=== PATIENT | female | born 1945 | race Caucasian/White ===

== ENCOUNTER 2016-12-03 20:55 | Inpatient (IN) | payer OTHER, MEDICARE ==
[~2016-12-03] VITALS: Ht 157.5 cm; Wt 64.7 kg
[~2016-12-03 20:55] MED LIST: ADVAIR HFA120 INHALA IH; ASPIR 8181 M1 PO; CELEXA20 MG PO; DEPAKOTE500 MG PO; DUONEB 2.5-0.5 M3 ML AEROSOL; FAMOTIDINE20 MG PO; LASIX20 MG PO; LEVAQUIN500 MG PO; LOSARTAN POTASS50 MG PO; MYRBETRIQ25 MG PO; ONDANSETRON HCL8 MG PO; PRAVASTATIN SOD40 MG PO; PREDNISONE10 MG PO; PREDNISONE20 MG PO; SYNTHROID50 MCG PO
[2016-12-03 22:31] LABS: MCH 32.4 PG (29.0-34.0); MCHC 33.8 G/DL (30.0-36.0); MCV 95.9 FL (83-99); PLATELET COUNT 270 K/uL (156-360); RBC DIS.WIDTH-CV 13.3 % (11.8-14.6); RBC DIS.WIDTH-SD 47.5 % (39-53); RED BLOOD COUNT 4.17 M/uL (3.80-5.20); WHITE BLOOD COUNT 16.1 K/uL (4.1-10.2)
[2016-12-03 22:43] LABS: CHLORIDE 97 mEq/L (99-109); POTASSIUM 3.4 mEq/L (3.7-5.4); SODIUM 136 mEq/L (136-147)
[2016-12-03 22:44] LABS: GLUCOSE 121 mg/dL (70-99)
[2016-12-03 22:46] LABS: ANION GAP 18 MEQ/L (2-14)
[2016-12-03 22:48] LABS: GFR ESTIMATE (CALCULATED) 22 mL/min/
[2016-12-03 22:49] LABS: UREA NITROGEN (BUN) 58 mg/dL (9-23)
[2016-12-03 22:50] LABS: ADD MIUA? YES; BILIRUBIN NEGATIVE; BLOOD MODERATE; COLOR AMBER ((YELLOW)); GLUCOSE (STRIP) NEGATIVE; KETONES 5; LEUKOCYTES MODERATE; NITRITE NEGATIVE; PROTEIN (STRIP) NEGATIVE; SPECIFIC GRAVITY 1.012 (1.000-1.030)
[2016-12-03 22:52] LABS: TROP-I INTERPRETATION NEGATIVE; TROPONIN-I 0.02 ng/mL (0.0-0.30)
[2016-12-03 23:03] LABS: TOTAL CK 4882 IU/L (1-294)
[2016-12-03 23:05] LABS: CREATINE KINASE 4882 IU/L (1-294)
[2016-12-03 23:17] LABS: BACTERIA 1+ /HPF; EPITHELIAL CELLS RARE /HPF; MUCUS NONE SEEN /LPF; RED BLOOD CELLS 0-5 /HPF (0-5); UCUL ADDED? NO; WHITE BLOOD CELLS CLUMP FEW /HPF (0-5)
[2016-12-03] MEDS ORDERED: CLEOCIN300 MG PO (23:22)
[2016-12-03] MEDS ORDERED: DUONEB 2.5-0.5 M3 ML AEROSOL (23:42)
[2016-12-03] MEDS ORDERED: LOSARTAN POTAS100 MG PO (23:43)
[2016-12-03] MEDS ORDERED: MYRBETRIQ50 MG PO (23:48)
[2016-12-03] MEDS ORDERED: THEO-24200 MG PO (23:49)
[2016-12-03] MEDS ORDERED: MOBIC15 MG PO (23:50)
[2016-12-03] MEDS ORDERED: CLONIDINE HCL0.1 MG PO (23:51)
[2016-12-03] MEDS ORDERED: AMBIEN10 MG PO (23:52)
[2016-12-04 04:36] VITALS: BP 145/75
[2016-12-04 07:55] VITALS: BP 158/84
[2016-12-04 10:57] LABS: ANION GAP 12 MEQ/L (2-14); CHLORIDE 108 MEQ/L (99-109); GLUCOSE 95 mg/dL (70-99); POTASSIUM 3.6 MEQ/L (3.7-5.4); SAMPLE HEMOLYSIS CHECK 0; SAMPLE ICTERIC CHECK 0; SAMPLE LIPEMIA CHECK 0; SODIUM 142 MEQ/L (136-147); UREA NITROGEN (BUN) 42 mg/dL (9-23)
[2016-12-04 11:02] LABS: GFR ESTIMATE (CALCULATED) 39 mL/min/
[2016-12-04 11:15] VITALS: BP 136/73
[2016-12-04 15:25] VITALS: BP 131/70
[2016-12-04 19:53] VITALS: BP 118/69
[2016-12-04 23:25] VITALS: BP 120/76
[2016-12-05 04:10] VITALS: BP 160/80
[2016-12-05 06:41] LABS: BASOPHIL COUNT 0.1 K/uL (0-0.1); EOSINOPHIL (%) 0.6 % (0-5); EOSINOPHIL COUNT 0.1 K/uL (0-0.3); IMMATURE GRANULOCYTE (%) 4.5 % (0.0-0.7); IMMATURE GRANULOCYTE COUNT 0.4 K/uL; INSTRUMENT ABS NEUTROPHIL CT 7.1 K/uL; LYMPHOCYTE COUNT 1.6 K/uL (1.0-2.8); MCH 32.3 PG (29.0-34.0); MCHC 32.4 G/DL (30.0-36.0); MCV 99.7 FL (83-99); MONOCYTE (%) 5.1 % (3-12); MONOCYTE COUNT 0.5 K/uL (0-0.8); NEUTROPHIL (%) 72.6 % (45-76); NEUTROPHIL COUNT 7.1 K/uL (1.8-6.4); RBC DIS.WIDTH-CV 13.8 % (11.8-14.6); RBC DIS.WIDTH-SD 50.6 % (39-53); RED BLOOD COUNT 3.41 M/uL (3.80-5.20); WHITE BLOOD COUNT 9.8 K/uL (4.1-10.2)
[2016-12-05 07:19] LABS: MEAN PLAT.VOLUME 9.6 uM^3 (9.5-12.4); PLAT.SUFFICIENCY ADEQUATE
[2016-12-05 07:19] LABS: ANION GAP 8 MEQ/L (2-14); CHLORIDE 109 MEQ/L (99-109); GFR ESTIMATE (CALCULATED) 52 mL/min/; GLUCOSE 73 mg/dL (70-99); MAGNESIUM 1.7 mg/dl (1.3-2.7); POTASSIUM 3.4 MEQ/L (3.7-5.4); SAMPLE HEMOLYSIS CHECK 0; SAMPLE ICTERIC CHECK 0; SAMPLE LIPEMIA CHECK 0; SODIUM 141 MEQ/L (136-147); UREA NITROGEN (BUN) 24 mg/dL (9-23)
[2016-12-05 07:23] LABS: CREATINE KINASE 1085 IU/L (1-294)
[2016-12-05 07:25] LABS: PLATELET COUNT 185 K/uL (156-360)
[2016-12-05 07:45] VITALS: BP 176/83
[2016-12-05 11:40] VITALS: BP 132/80
[2016-12-05 15:59] VITALS: BP 146/82
[2016-12-05 20:16] VITALS: BP 175/84
[2016-12-05 23:14] VITALS: BP 160/81
[2016-12-06 04:31] VITALS: BP 169/92
[2016-12-06 06:22] LABS: ANION GAP 8 MEQ/L (2-14); CHLORIDE 106 MEQ/L (99-109); CREATINE KINASE 352 IU/L (1-294); GFR ESTIMATE (CALCULATED) > 59 mL/min/; GLUCOSE 79 mg/dL (70-99); MAGNESIUM 1.5 mg/dl (1.3-2.7); POTASSIUM 3.3 MEQ/L (3.7-5.4); SAMPLE HEMOLYSIS CHECK 0; SAMPLE ICTERIC CHECK 0; SAMPLE LIPEMIA CHECK 0; SODIUM 138 MEQ/L (136-147); UREA NITROGEN (BUN) 14 mg/dL (9-23)
[2016-12-06 08:21] VITALS: BP 170/87
[2016-12-06 16:27] VITALS: BP 178/84
[2016-12-07 00:03] VITALS: BP 132/87
[2016-12-07 07:10] LABS: ANION GAP 8 MEQ/L (2-14); CHLORIDE 106 MEQ/L (99-109); GFR ESTIMATE (CALCULATED) > 59 mL/min/; GLUCOSE 76 mg/dL (70-99); POTASSIUM 3.6 MEQ/L (3.7-5.4); SAMPLE HEMOLYSIS CHECK 0; SAMPLE ICTERIC CHECK 0; SAMPLE LIPEMIA CHECK 0; SODIUM 138 MEQ/L (136-147); UREA NITROGEN (BUN) 12 mg/dL (9-23)
[2016-12-07 07:30] VITALS: BP 174/95
[2016-12-07] MEDS ORDERED: LEVAQUIN500 MG PO (13:34)
[2016-12-07] MEDS ORDERED: CYANOCOBALAM1000 MCG PO (13:36)
[2016-12-07] MEDS ORDERED: LEVOFLOXAC500 MG/101 IV (16:48)
[2016-12-07] MEDS ORDERED: VITAMIN D5000 UNI1 PO (17:06)
[2016-12-07] MEDS ORDERED: HEPARIN SO5000 UNIT3 SC (17:08)
[2016-12-07] MEDS ORDERED: PROTONIX40 MG PO (17:09)
[2016-12-07] MEDS ORDERED: ULTRAM50 MG PO (17:48)
[2016-12-07] MEDS ORDERED: MOBIC15 MG PO (17:50)
== END 2016-12-07 14:38 | DRG 871 ==
LOC: EME → EDBD 20:55 → 2EAST 12-04 00:47 → EDOF 12-04 00:47 → 2EAST 12-04 02:23
PROVIDERS: Emergency Medicine; Hospitalist; Internal Medicine
DX: A41.9 Sepsis, unspecified organism (principal); J18.9 Pneumonia, unspecified organism; G93.41 Metabolic encephalopathy; N17.9 Acute kidney failure, unspecified; N39.0 Urinary tract infection, site not specified; J44.0 Chronic obstructive pulmonary disease with (acute) lower respiratory infection; M62.82 Rhabdomyolysis; M87.852 Other osteonecrosis, left femur; F05 Delirium due to known physiological condition; E03.9 Hypothyroidism, unspecified; E78.5 Hyperlipidemia, unspecified; E86.0 Dehydration; I10 Essential (primary) hypertension; I73.9 Peripheral vascular disease, unspecified; M19.90 Unspecified osteoarthritis, unspecified site; E66.9 Obesity, unspecified; B96.20 Unspecified Escherichia coli [E. coli] as the cause of diseases classified elsewhere; W19.XXXA Unspecified fall, initial encounter; S70.12XA Contusion of left thigh, initial encounter; M48.54XD Collapsed vertebra, not elsewhere classified, thoracic region, subsequent encounter for fracture with routine healing; F32.9 Major depressive disorder, single episode, unspecified; G43.909 Migraine, unspecified, not intractable, without status migrainosus; Z87.891 Personal history of nicotine dependence; Z68.26 Body mass index [BMI] 26.0-26.9, adult; Z86.73 Personal history of transient ischemic attack (TIA), and cerebral infarction without residual deficits; Z79.52 Long term (current) use of systemic steroids; Y92.9 Unspecified place or not applicable; Z82.49 Family history of ischemic heart disease and other diseases of the circulatory system; Z79.899 Other long term (current) drug therapy
CPT/HCPCS: 70450; 71020; 73552; 74176; 76770; 80048; 81003; 82306; 82550; 82553; 82607; 83605; 83735; 84443; 84484; 85025; 85027; 87040; 87077; 87086; 87186; 92610 GN; 93005; 97530 GO; 97530 GP; 99202; 99281; 99285; J1644; J1956; J2543; J7030

== ENCOUNTER 2016-12-07 14:08 | Inpatient (IN) | payer OTHER, MEDICARE ==
[~2016-12-07] VITALS: Ht 152.4 cm; Wt 68.7 kg
[~2016-12-07 14:08] MED LIST changes: +AMBIEN10 MG PO; +CLEOCIN300 MG PO; +CLONIDINE HCL0.1 MG PO; +CYANOCOBALAM1000 MCG PO; +LOSARTAN POTAS100 MG PO; +MOBIC15 MG PO; +MYRBETRIQ50 MG PO; +THEO-24200 MG PO
[2016-12-07 15:00] VITALS: BP 170/93
[2016-12-07] MEDS ORDERED: LEVOFLOXAC500 MG/101 IV (16:48)
[2016-12-07] MEDS ORDERED: VITAMIN D5000 UNI1 PO (17:06)
[2016-12-07] MEDS ORDERED: HEPARIN SO5000 UNIT3 SC (17:08)
[2016-12-07] MEDS ORDERED: PROTONIX40 MG PO (17:09)
[2016-12-07] MEDS ORDERED: ULTRAM50 MG PO (17:48)
[2016-12-07] MEDS ORDERED: MOBIC15 MG PO (17:50)
[2016-12-08 06:06] VITALS: BP 141/80
[2016-12-08 15:11] VITALS: BP 140/72
[2016-12-09 04:38] VITALS: BP 131/74
[2016-12-09 14:59] VITALS: BP 159/84
[2016-12-10 05:10] VITALS: BP 134/71
[2016-12-10 07:12] LABS: HEMATOCRIT 31.7 % (36.0-46.0); MCH 31.5 PG (29.0-34.0); MCHC 31.9 G/DL (30.0-36.0); MCV 98.8 FL (83-99); MEAN PLAT.VOLUME 9.3 uM^3 (9.5-12.4); PLATELET COUNT 166 K/uL (156-360); RBC DIS.WIDTH-CV 13.9 % (11.8-14.6); RBC DIS.WIDTH-SD 50.3 % (39-53); RED BLOOD COUNT 3.21 M/uL (3.80-5.20); WHITE BLOOD COUNT 11.5 K/uL (4.1-10.2)
[2016-12-10 07:40] LABS: ALKALINE PHOSPHATASE 64 IU/L (3-129); ANION GAP 8 MEQ/L (2-14); CHLORIDE 103 MEQ/L (99-109); GFR ESTIMATE (CALCULATED) > 59 mL/min/; GLUCOSE 80 mg/dL (70-99); POTASSIUM 3.7 MEQ/L (3.7-5.4); SAMPLE HEMOLYSIS CHECK 0; SAMPLE ICTERIC CHECK 0; SAMPLE LIPEMIA CHECK 0; SODIUM 138 MEQ/L (136-147); TOTAL BILIRUBIN 0.5 MG/DL (0.0-1.0); UREA NITROGEN (BUN) 9 mg/dL (9-23)
[2016-12-10 07:48] LABS: ABS NEUTROPHIL COUNT 7.6; ANISOCYTOSIS 1+; EOSINOPHIL ABS CT 0.1; EOSINOPHILS 0.9 % (0-5.0); INSTRUMENT ABS NEUTROPHIL CT 5.9 K/uL; MACROCYTES 1+; PLAT.SUFFICIENCY ADEQUATE; SEG.NEUTROPHILS 65.8 % (46.0-76.0)
[2016-12-10 15:35] VITALS: BP 141/73
[2016-12-11 05:03] VITALS: BP 138/63
[2016-12-11 15:44] VITALS: BP 114/69
[2016-12-12 05:33] VITALS: BP 147/79
[2016-12-12 06:06] LABS: MCH 33.1 PG (29.0-34.0); MCHC 33.6 G/DL (30.0-36.0); MCV 98.6 FL (83-99); MEAN PLAT.VOLUME 9.2 uM^3 (9.5-12.4); PLATELET COUNT 162 K/uL (156-360); RBC DIS.WIDTH-SD 50.9 % (39-53); RED BLOOD COUNT 2.84 M/uL (3.80-5.20); WHITE BLOOD COUNT 13.6 K/uL (4.1-10.2)
[2016-12-12 07:04] LABS: ALKALINE PHOSPHATASE 65 IU/L (3-129); ANION GAP 8 MEQ/L (2-14); CHLORIDE 101 MEQ/L (99-109); GFR ESTIMATE (CALCULATED) > 59 mL/min/; GLUCOSE 82 mg/dL (70-99); POTASSIUM 3.8 MEQ/L (3.7-5.4); SAMPLE HEMOLYSIS CHECK 0; SAMPLE ICTERIC CHECK 0; SAMPLE LIPEMIA CHECK 0; SODIUM 137 MEQ/L (136-147); TOTAL BILIRUBIN 0.4 MG/DL (0.0-1.0); UREA NITROGEN (BUN) 11 mg/dL (9-23)
[2016-12-12 07:06] LABS: CREATINE KINASE 19 IU/L (1-294)
[2016-12-12 15:18] VITALS: BP 140/71
[2016-12-13 04:58] VITALS: BP 169/82
[2016-12-13 06:45] LABS: BASOPHIL COUNT 0.1 K/uL (0-0.1); EOSINOPHIL (%) 0.7 % (0-5); EOSINOPHIL COUNT 0.1 K/uL (0-0.3); HEMATOCRIT 30.3 % (36.0-46.0); IMMATURE GRANULOCYTE (%) 3.9 % (0.0-0.7); IMMATURE GRANULOCYTE COUNT 0.6 K/uL; INSTRUMENT ABS NEUTROPHIL CT 11.1 K/uL; LYMPHOCYTE COUNT 1.8 K/uL (1.0-2.8); MCH 32.4 PG (29.0-34.0); MCV 98.1 FL (83-99); MEAN PLAT.VOLUME 9.3 uM^3 (9.5-12.4); MONOCYTE (%) 8.9 % (3-12); MONOCYTE COUNT 1.3 K/uL (0-0.8); NEUTROPHIL (%) 73.9 % (45-76); NEUTROPHIL COUNT 11.1 K/uL (1.8-6.4); PLATELET COUNT 203 K/uL (156-360); RBC DIS.WIDTH-CV 13.9 % (11.8-14.6); RBC DIS.WIDTH-SD 50.4 % (39-53); RED BLOOD COUNT 3.09 M/uL (3.80-5.20)
[2016-12-13 15:00] VITALS: BP 153/80
[2016-12-14 05:53] VITALS: BP 133/75
[2016-12-14 15:15] VITALS: BP 157/79
[2016-12-15 04:20] VITALS: BP 165/72
[2016-12-15 15:12] VITALS: BP 125/63
[2016-12-16 03:36] VITALS: BP 129/71
[2016-12-16 16:02] VITALS: BP 123/78
[2016-12-17 04:18] VITALS: BP 142/61
[2016-12-17 15:23] VITALS: BP 125/71
[2016-12-18 05:31] VITALS: BP 138/75
[2016-12-18 07:40] LABS: ANION GAP 6 MEQ/L (2-14); CHLORIDE 98 MEQ/L (99-109); GFR ESTIMATE (CALCULATED) 58 mL/min/; GLUCOSE 70 mg/dL (70-99); SAMPLE HEMOLYSIS CHECK 0; SAMPLE ICTERIC CHECK 0; SAMPLE LIPEMIA CHECK 0; SODIUM 131 MEQ/L (136-147); TOTAL BILIRUBIN 0.4 MG/DL (0.0-1.0); UREA NITROGEN (BUN) 11 mg/dL (9-23)
[2016-12-18 07:41] LABS: ALKALINE PHOSPHATASE 97 IU/L (3-129)
[2016-12-18 07:44] LABS: HEMATOCRIT 29.8 % (36.0-46.0); MCH 31.6 PG (29.0-34.0); MCHC 31.9 G/DL (30.0-36.0); MEAN PLAT.VOLUME 8.8 uM^3 (9.5-12.4); PLATELET COUNT 281 K/uL (156-360); RBC DIS.WIDTH-CV 14.1 % (11.8-14.6); RBC DIS.WIDTH-SD 50.8 % (39-53); RED BLOOD COUNT 3.01 M/uL (3.80-5.20); WHITE BLOOD COUNT 9.5 K/uL (4.1-10.2)
[2016-12-18 14:46] VITALS: BP 116/70
[2016-12-19 04:11] VITALS: BP 132/61
[2016-12-19 15:02] VITALS: BP 119/75
[2016-12-20 05:36] VITALS: BP 128/74
[2016-12-20 15:48] VITALS: BP 133/71
[2016-12-20 18:33] LABS: ADD MIUA? YES; BILIRUBIN NEGATIVE; BLOOD SMALL; COLOR YELLOW ((YELLOW)); GLUCOSE (STRIP) NEGATIVE; KETONES NEGATIVE; LEUKOCYTES LARGE; NITRITE NEGATIVE; PROTEIN (STRIP) NEGATIVE; SPECIFIC GRAVITY 1.008 (1.000-1.030); UROBILINOGEN 0.2 MG/DL (0.2-1.0)
[2016-12-20 19:47] LABS: RED BLOOD CELLS 0-5 /HPF (0-5)
[2016-12-20 19:48] LABS: BACTERIA 2+ /HPF; EPITHELIAL CELLS 1+ /HPF; WHITE BLOOD CELLS 30-40 /HPF (0-5); WHITE BLOOD CELLS CLUMP FEW /HPF (0-5)
[2016-12-20 19:49] LABS: HYALINE CASTS RARE /LPF; MUCUS TRACE /LPF
[2016-12-21 05:08] VITALS: BP 131/67
[2016-12-21 15:40] VITALS: BP 120/70
[2016-12-22 05:08] VITALS: BP 161/81
[2016-12-22 08:25] VITALS: BP 116/75
[2016-12-22 15:34] VITALS: BP 147/81
[2016-12-22] MEDS ORDERED: AMLODIPINE BES2.5 MG PO (18:17)
[2016-12-22] MEDS ORDERED: HYDROCODON-ACE1 EAC7 PO (18:19)
[2016-12-22 18:26] LABS: HEMATOCRIT 28.8 % (36.0-46.0); MCH 32.2 PG (29.0-34.0); MCV 97.6 FL (83-99); MEAN PLAT.VOLUME 8.6 uM^3 (9.5-12.4); PLATELET COUNT 276 K/uL (156-360); RBC DIS.WIDTH-CV 14.1 % (11.8-14.6); RBC DIS.WIDTH-SD 50.4 % (39-53); RED BLOOD COUNT 2.95 M/uL (3.80-5.20); WHITE BLOOD COUNT 8.5 K/uL (4.1-10.2)
[2016-12-22 18:46] LABS: ANION GAP 8 MEQ/L (2-14); CHLORIDE 89 MEQ/L (99-109); GFR ESTIMATE (CALCULATED) 58 mL/min/; GLUCOSE 120 mg/dL (70-99); POTASSIUM 4.4 MEQ/L (3.7-5.4); SAMPLE HEMOLYSIS CHECK 0; SAMPLE ICTERIC CHECK 0; SAMPLE LIPEMIA CHECK 0; SODIUM 120 MEQ/L (136-147); UREA NITROGEN (BUN) 13 mg/dL (9-23)
[2016-12-23 05:28] VITALS: BP 155/72
[2016-12-23 10:38] LABS: ANION GAP 10 MEQ/L (2-14); CHLORIDE 89 MEQ/L (99-109); GFR ESTIMATE (CALCULATED) 58 mL/min/; GLUCOSE 121 mg/dL (70-99); POTASSIUM 4.6 MEQ/L (3.7-5.4); SAMPLE HEMOLYSIS CHECK 0; SAMPLE ICTERIC CHECK 0; SAMPLE LIPEMIA CHECK 0; SODIUM 122 MEQ/L (136-147); UREA NITROGEN (BUN) 12 mg/dL (9-23)
[2016-12-23 16:36] VITALS: BP 115/68
[2016-12-23 16:44] LABS: ANION GAP 8 MEQ/L (2-14); CHLORIDE 88 MEQ/L (99-109); GFR ESTIMATE (CALCULATED) > 59 mL/min/; GLUCOSE 97 mg/dL (70-99); POTASSIUM 4.8 MEQ/L (3.7-5.4); SAMPLE HEMOLYSIS CHECK 0; SAMPLE ICTERIC CHECK 0; SAMPLE LIPEMIA CHECK 0; SODIUM 119 MEQ/L (136-147); UREA NITROGEN (BUN) 13 mg/dL (9-23)
[2016-12-23 20:29] LABS: ANION GAP 8 MEQ/L (2-14); CHLORIDE 90 MEQ/L (99-109); GFR ESTIMATE (CALCULATED) > 59 mL/min/; GLUCOSE 106 mg/dL (70-99); POTASSIUM 4.8 MEQ/L (3.7-5.4); SAMPLE HEMOLYSIS CHECK 0; SAMPLE ICTERIC CHECK 0; SAMPLE LIPEMIA CHECK 0; SODIUM 121 MEQ/L (136-147); UREA NITROGEN (BUN) 13 mg/dL (9-23)
[2016-12-24 04:51] VITALS: BP 149/69
[2016-12-24 09:20] LABS: ANION GAP 8 MEQ/L (2-14); CHLORIDE 93 MEQ/L (99-109); GFR ESTIMATE (CALCULATED) 58 mL/min/; GLUCOSE 72 mg/dL (70-99); POTASSIUM 5.1 MEQ/L (3.7-5.4); SAMPLE HEMOLYSIS CHECK 0; SAMPLE ICTERIC CHECK 0; SAMPLE LIPEMIA CHECK 0; SODIUM 125 MEQ/L (136-147); UREA NITROGEN (BUN) 13 mg/dL (9-23)
[2016-12-24 10:39] LABS: HPCA INDEX 0.06
[2016-12-24 15:41] VITALS: BP 98/58
[2016-12-24 18:07] VITALS: BP 110/58
[2016-12-25 04:34] VITALS: BP 113/64
[2016-12-25 07:04] LABS: ANION GAP 7 MEQ/L (2-14); CHLORIDE 98 MEQ/L (99-109); GFR ESTIMATE (CALCULATED) > 59 mL/min/; GLUCOSE 79 mg/dL (70-99); POTASSIUM 4.9 MEQ/L (3.7-5.4); SAMPLE HEMOLYSIS CHECK 0; SAMPLE ICTERIC CHECK 0; SAMPLE LIPEMIA CHECK 0; SODIUM 129 MEQ/L (136-147); UREA NITROGEN (BUN) 12 mg/dL (9-23)
[2016-12-25] MEDS ORDERED: TYLENOL REGULA325 MG PO (11:51)
[2016-12-25] MEDS ORDERED: SENNA PLUS TAB1 EACH PO (11:52)
[2016-12-25] MEDS ORDERED: POLYETHYLENE GL17 GM PO (11:52)
[2016-12-25] MEDS ORDERED: SODIUM CHLORIDE1 G1 PO (11:52)
== END 2016-12-25 15:02 | DRG 70 ==
LOC: 3WEST 14:08
PROVIDERS: Internal Medicine Nephrology; Physical Medicine & Rehabilitation Pain Medicine; Psychiatry & Neurology Neurology
PROC: F07M0ZZ Range of Motion and Joint Mobility Treatment of Musculoskeletal System - Whole Body (ICD-10-PCS; principal; 2016-12-07)
DX: G93.40 Encephalopathy, unspecified (principal); M62.82 Rhabdomyolysis; N17.9 Acute kidney failure, unspecified; J44.0 Chronic obstructive pulmonary disease with (acute) lower respiratory infection; J44.9 Chronic obstructive pulmonary disease, unspecified; I10 Essential (primary) hypertension; E78.5 Hyperlipidemia, unspecified; E03.9 Hypothyroidism, unspecified; Z87.891 Personal history of nicotine dependence; M87.9 Osteonecrosis, unspecified; N39.41 Urge incontinence; N39.0 Urinary tract infection, site not specified; D64.9 Anemia, unspecified; B96.20 Unspecified Escherichia coli [E. coli] as the cause of diseases classified elsewhere; E22.2 Syndrome of inappropriate secretion of antidiuretic hormone; Z87.01 Personal history of pneumonia (recurrent); A41.9 Sepsis, unspecified organism; J18.9 Pneumonia, unspecified organism
CPT/HCPCS: 71010; 80048; 80048 91; 80053; 81003; 82533 91; 82550; 83935; 84100; 84300; 84443; 84550; 85025; 85027; 86803; 87040; 87086; 92523 GN; 92610 GN; 97110 GO; 97530 GP; 97532 GN; J1644; J1956; J7030

== ENCOUNTER → 2017-01-14 | Outpatient (CLI) | payer OTHER, MEDICARE ==
[~2017-01-14] MED LIST changes: +AMLODIPINE BES2.5 MG PO; +HEPARIN SO5000 UNIT3 SC; +HYDROCODON-ACE1 EAC7 PO; +LEVOFLOXAC500 MG/101 IV; +POLYETHYLENE GL17 GM PO; +PROTONIX40 MG PO; +SENNA PLUS TAB1 EACH PO; +SODIUM CHLORIDE1 G1 PO; +TYLENOL REGULA325 MG PO; +ULTRAM50 MG PO; +VITAMIN D5000 UNI1 PO
== END ==
LOC: EEG 08:52
DX: G40.89 Other seizures (principal)
CPT/HCPCS: 95819

== ENCOUNTER 2017-02-03 19:49 | Emergency (ER) | payer OTHER ==
[~2017-02-03] VITALS: Ht 172.7 cm; Wt 65.4 kg
[2017-02-03 22:53] LABS: HEMATOCRIT 34.2 % (36.0-46.0); MCH 31.5 PG (29.0-34.0); MCHC 32.2 G/DL (30.0-36.0); MEAN PLAT.VOLUME 8.7 uM^3 (9.5-12.4); PLATELET COUNT 257 K/uL (156-360); RBC DIS.WIDTH-CV 15.9 % (11.8-14.6); RBC DIS.WIDTH-SD 57.1 % (39-53); RED BLOOD COUNT 3.49 M/uL (3.80-5.20); WHITE BLOOD COUNT 7.5 K/uL (4.1-10.2)
[2017-02-03 22:59] LABS: PROTHROMBIN TIME 11.5 SEC (10.2-12.9)
[2017-02-03 23:06] LABS: CHLORIDE 109 mEq/L (99-109); POTASSIUM 3.8 mEq/L (3.7-5.4); SODIUM 141 mEq/L (136-147)
[2017-02-03 23:08] LABS: GLUCOSE 74 mg/dL (70-99)
[2017-02-03 23:09] LABS: ANION GAP 10 MEQ/L (2-14)
[2017-02-03 23:12] LABS: GFR ESTIMATE (CALCULATED) > 59 mL/min/
[2017-02-03 23:13] LABS: UREA NITROGEN (BUN) 12 mg/dL (9-23)
[2017-02-03 23:17] LABS: TROP-I INTERPRETATION NEGATIVE; TROPONIN-I < 0.01 ng/mL (0.0-0.30)
[2017-02-04] MEDS ORDERED: FLEXERIL10 MG PO (00:37)
[2017-02-04] MEDS ORDERED: NAPROSYN500 MG PO (00:37)
[2017-02-04 01:21] VITALS: BP 165/84
== END 2017-02-04 02:02 | disposition home or self-care (01) ==
LOC: EME 19:49
PROVIDERS: Emergency Medicine
DX: R60.0 Localized edema (principal); M54.5 Low back pain; M79.605 Pain in left leg
CPT/HCPCS: 80048; 83880; 84484; 85027; 85610; 93005; 93971; 99281; 99284

== ENCOUNTER 2017-02-22 12:21 | Emergency (ER) | payer OTHER ==
[~2017-02-22] VITALS: Ht 152.4 cm; Wt 65.0 kg
[~2017-02-22 12:21] MED LIST changes: +FLEXERIL10 MG PO; +NAPROSYN500 MG PO
[2017-02-22 15:53] LABS: HEMATOCRIT 36.7 % (36.0-46.0); MCH 31.2 PG (29.0-34.0); MCHC 32.2 G/DL (30.0-36.0); MCV 97.1 FL (83-99); MEAN PLAT.VOLUME 8.6 uM^3 (9.5-12.4); PLATELET COUNT 257 K/uL (156-360); RBC DIS.WIDTH-CV 15.2 % (11.8-14.6); RBC DIS.WIDTH-SD 54.1 % (39-53); RED BLOOD COUNT 3.78 M/uL (3.80-5.20); WHITE BLOOD COUNT 10.7 K/uL (4.1-10.2)
[2017-02-22 15:59] LABS: PROTHROMBIN TIME 11.3 SEC (10.2-12.9)
[2017-02-22 16:01] LABS: PTT 28.7 SEC (25-37)
[2017-02-22 16:05] LABS: CHLORIDE 101 mEq/L (99-109); SODIUM 136 mEq/L (136-147)
[2017-02-22 16:07] LABS: GLUCOSE 81 mg/dL (70-99)
[2017-02-22 16:08] LABS: ANION GAP 10 MEQ/L (2-14)
[2017-02-22 16:10] LABS: GFR ESTIMATE (CALCULATED) 47 mL/min/
[2017-02-22 16:11] LABS: UREA NITROGEN (BUN) 17 mg/dL (9-23)
[2017-02-22 16:18] LABS: TROP-I INTERPRETATION NEGATIVE; TROPONIN-I < 0.01 ng/mL (0.0-0.30)
[2017-02-22 16:47] LABS: ADD MIUA? YES; BILIRUBIN NEGATIVE; BLOOD SMALL; COLOR YELLOW ((YELLOW)); GLUCOSE (STRIP) NEGATIVE; KETONES NEGATIVE; LEUKOCYTES SMALL; NITRITE NEGATIVE; PROTEIN (STRIP) NEGATIVE; UROBILINOGEN 0.2 MG/DL (0.2-1.0)
[2017-02-22] MEDS ORDERED: PROAIR HFA8.5 GM IH (16:52)
[2017-02-22] MEDS ORDERED: PRILOSEC20 MG PO (16:53)
[2017-02-22] MEDS ORDERED: KLOR-CON SPRIN10 MEQ PO (16:57)
[2017-02-22] MEDS ORDERED: CELEXA20 MG PO (16:59)
[2017-02-22] MEDS ORDERED: AMBIEN5 MG PO (17:00)
[2017-02-22] MEDS ORDERED: CELEXA10 MG PO (17:02)
[2017-02-22] MEDS ORDERED: LASIX20 MG PO (17:04)
[2017-02-22 17:13] LABS: BACTERIA RARE /HPF; EPITHELIAL CELLS 3+ /HPF; MUCUS NONE SEEN /LPF; RED BLOOD CELLS 0-5 /HPF (0-5); WHITE BLOOD CELLS 40-50 /HPF (0-5); WHITE BLOOD CELLS CLUMP RARE /HPF (0-5)
[2017-02-22 22:25] VITALS: BP 130/77
== END 2017-02-22 22:27 | disposition short-term general hospital (02) ==
LOC: EME 12:21
PROVIDERS: Physician Assistant
DX: S32.472A Displaced fracture of medial wall of left acetabulum, initial encounter for closed fracture (principal); W19.XXXA Unspecified fall, initial encounter; M87.822 Other osteonecrosis, left humerus; B35.6 Tinea cruris; M16.12 Unilateral primary osteoarthritis, left hip; M17.12 Unilateral primary osteoarthritis, left knee; F03.90 Unspecified dementia, unspecified severity, without behavioral disturbance, psychotic disturbance, mood disturbance, and anxiety; I10 Essential (primary) hypertension; J44.9 Chronic obstructive pulmonary disease, unspecified; Z86.73 Personal history of transient ischemic attack (TIA), and cerebral infarction without residual deficits; Z87.891 Personal history of nicotine dependence
CPT/HCPCS: 71010; 73502; 73564; 80048; 81003; 84484; 85027; 85610; 85730; 93005; 99281; 99285; J2405; J3010; J7030

== ENCOUNTER 2017-04-18 13:23 | Emergency (ER) | payer OTHER ==
[~2017-04-18] VITALS: Ht 154.9 cm; Wt 60.9 kg
[~2017-04-18 13:23] MED LIST changes: +AMBIEN5 MG PO; +CELEXA10 MG PO; +KLOR-CON SPRIN10 MEQ PO; +PRILOSEC20 MG PO; +PROAIR HFA8.5 GM IH
[2017-04-18 16:32] LABS: CHLORIDE 97 mEq/L (99-109); POTASSIUM 4.1 mEq/L (3.7-5.4); SODIUM 138 mEq/L (136-147)
[2017-04-18 16:34] LABS: GLUCOSE 91 mg/dL (70-99)
[2017-04-18 16:36] LABS: ANION GAP 14 MEQ/L (2-14)
[2017-04-18 16:38] LABS: GFR ESTIMATE (CALCULATED) 47 mL/min/
[2017-04-18 16:39] LABS: UREA NITROGEN (BUN) 19 mg/dL (9-23)
[2017-04-18 17:24] LABS: ADD MIUA? YES; BILIRUBIN NEGATIVE; BLOOD SMALL; COLOR YELLOW ((YELLOW)); GLUCOSE (STRIP) NEGATIVE; KETONES NEGATIVE; LEUKOCYTES LARGE; NITRITE POSITIVE; PROTEIN (STRIP) NEGATIVE; SPECIFIC GRAVITY 1.009 (1.000-1.030); UROBILINOGEN 0.2 MG/DL (0.2-1.0)
[2017-04-18 17:58] LABS: EPITHELIAL CELLS 1+ /HPF; RED BLOOD CELLS RARE /HPF (0-5); WHITE BLOOD CELLS 20-30 /HPF (0-5)
[2017-04-18 17:59] LABS: BACTERIA 2+ /HPF; MUCUS NONE SEEN /LPF
[2017-04-18] MEDS ORDERED: KEFLEX500 MG PO (18:15)
[2017-04-18 18:57] VITALS: BP 121/70
[2017-04-21] MEDS ORDERED: IMODIUM A-D2 M2 PO (15:51)
[2017-04-21] MEDS ORDERED: BENTYL20 MG PO ×2 (15:51→17:25)
[2017-04-21] MEDS ORDERED: ZOFRAN4 MG PO (15:51)
== END 2017-04-18 18:27 | disposition home or self-care (01) ==
LOC: EME 13:23
PROVIDERS: Physician Assistant
DX: R22.43 Localized swelling, mass and lump, lower limb, bilateral (principal); N39.0 Urinary tract infection, site not specified; I10 Essential (primary) hypertension; J44.9 Chronic obstructive pulmonary disease, unspecified; Z86.73 Personal history of transient ischemic attack (TIA), and cerebral infarction without residual deficits; Z87.891 Personal history of nicotine dependence
CPT/HCPCS: 80048; 81003; 93970; 99281; 99285

== ENCOUNTER 2017-05-19 11:18 | Inpatient (IN) | payer OTHER ==
[~2017-05-19] VITALS: Ht 154.9 cm; Wt 68.8 kg
[~2017-05-19 11:18] MED LIST changes: +BENTYL20 MG PO; +IMODIUM A-D2 M2 PO; +KEFLEX500 MG PO; +ZOFRAN4 MG PO
[2017-05-19 12:19] LABS: BASOPHIL COUNT 0.1 K/uL (0-0.1); EOSINOPHIL (%) 2.2 % (0-5); EOSINOPHIL COUNT 0.2 K/uL (0-0.3); IMMATURE GRANULOCYTE (%) 1.3 % (0.0-0.7); IMMATURE GRANULOCYTE COUNT 0.1 K/uL; INSTRUMENT ABS NEUTROPHIL CT 6.5 K/uL; LYMPHOCYTE COUNT 2.5 K/uL (1.0-2.8); MCH 32.7 PG (29.0-34.0); MCHC 31.2 G/DL (30.0-36.0); MONOCYTE (%) 8.6 % (3-12); MONOCYTE COUNT 0.9 K/uL (0-0.8); NEUTROPHIL (%) 63.5 % (45-76); NEUTROPHIL COUNT 6.5 K/uL (1.8-6.4); RBC DIS.WIDTH-CV 15.1 % (11.8-14.6); RED BLOOD COUNT 3.15 M/uL (3.80-5.20); WHITE BLOOD COUNT 10.2 K/uL (4.1-10.2)
[2017-05-19 12:36] LABS: TROP-I INTERPRETATION NEGATIVE; TROPONIN-I < 0.01 ng/mL (0.0-0.30)
[2017-05-19 12:49] LABS: ALKALINE PHOSPHATASE 55 IU/L (3-129); ANION GAP 5 MEQ/L (2-14); CHLORIDE 96 MEQ/L (99-109); GFR ESTIMATE (CALCULATED) 28 mL/min/; GLUCOSE 71 mg/dL (70-99); SAMPLE HEMOLYSIS CHECK 0; SAMPLE ICTERIC CHECK 0; SAMPLE LIPEMIA CHECK 0; SODIUM 137 MEQ/L (136-147); TOTAL BILIRUBIN 0.3 MG/DL (0.0-1.0); UREA NITROGEN (BUN) 39 mg/dL (9-23)
[2017-05-19 12:55] LABS: MCV 104.8 FL (83-99)
[2017-05-19 13:05] LABS: PLAT.SUFFICIENCY ADEQUATE; PLATELET CLUMPS PRESENT - PLATELET COUNT APPEARS ADQ.
[2017-05-19 13:06] LABS: PLATELET COUNT UNABLE TO REPORT K/uL (156-360)
[2017-05-19 13:44] LABS: ADD MIUA? YES; BILIRUBIN NEGATIVE; BLOOD NEGATIVE; COLOR YELLOW ((YELLOW)); GLUCOSE (STRIP) NEGATIVE; KETONES NEGATIVE; LEUKOCYTES LARGE; NITRITE NEGATIVE; PROTEIN (STRIP) NEGATIVE; SPECIFIC GRAVITY 1.008 (1.000-1.030); UROBILINOGEN 0.2 MG/DL (0.2-1.0)
[2017-05-19 13:54] LABS: BACTERIA RARE /HPF; CALCIUM OXALATE CRYSTALS 1+ /HPF; EPITHELIAL CELLS RARE /HPF; MUCUS NONE SEEN /LPF; UCUL ADDED? YES; WHITE BLOOD CELLS TNTC /HPF (0-5)
[2017-05-19] MEDS ORDERED: MYRBETRIQ50 MG PO (15:36)
[2017-05-19] MEDS ORDERED: FERROUS SULFAT325 MG PO (15:36)
[2017-05-19 16:06] LABS: FERRITIN 155 NG/ML (10-291)
[2017-05-19 17:15] VITALS: BP 135/59
[2017-05-19 20:05] VITALS: BP 79/43
[2017-05-19 23:42] VITALS: BP 100/57
[2017-05-20] VITALS (7 sets, daily range): BP systolic 92–136; BP diastolic 51–68
[2017-05-20 06:35] LABS: ANION GAP 3 MEQ/L (2-14); CHLORIDE 103 MEQ/L (99-109); GFR ESTIMATE (CALCULATED) 34 mL/min/; GLUCOSE 69 mg/dL (70-99); POTASSIUM 5.2 MEQ/L (3.7-5.4); SAMPLE HEMOLYSIS CHECK 0; SAMPLE ICTERIC CHECK 0; SAMPLE LIPEMIA CHECK 0; SODIUM 142 MEQ/L (136-147); UREA NITROGEN (BUN) 30 mg/dL (9-23)
[2017-05-20 12:08] LABS: BASE EXCESS 5.3 mEq/L (-3 to +3); CARBOXY HGB 1.6 % (0-5); METHEMOGLOBIN 1.5 % (0-1.5); PCO2 50 mm Hg (35-45); PO2 89 mm Hg (80-100)
[2017-05-20 12:09] LABS: COMMENTS - BLOOD GASES A+C+; DEVICE CANNULA; O2 FLOW 2 L/MIN; SITE RR
[2017-05-21 00:17] VITALS: BP 112/62
[2017-05-21 07:10] LABS: EOSINOPHIL (%) 2.6 % (0-5); EOSINOPHIL COUNT 0.2 K/uL (0-0.3); HEMATOCRIT 32.5 % (36.0-46.0); IMMATURE GRANULOCYTE (%) 1.8 % (0.0-0.7); IMMATURE GRANULOCYTE COUNT 0.1 K/uL; INSTRUMENT ABS NEUTROPHIL CT 4.3 K/uL; LYMPHOCYTE COUNT 1.3 K/uL (1.0-2.8); MCH 33.6 PG (29.0-34.0); MCHC 31.7 G/DL (30.0-36.0); MCV 105.9 FL (83-99); MEAN PLAT.VOLUME 9.9 uM^3 (9.5-12.4); MONOCYTE (%) 8.7 % (3-12); MONOCYTE COUNT 0.6 K/uL (0-0.8); NEUTROPHIL (%) 65.8 % (45-76); NEUTROPHIL COUNT 4.3 K/uL (1.8-6.4); RBC DIS.WIDTH-CV 14.5 % (11.8-14.6); RBC DIS.WIDTH-SD 56.2 % (39-53); RED BLOOD COUNT 3.07 M/uL (3.80-5.20); WHITE BLOOD COUNT 6.6 K/uL (4.1-10.2)
[2017-05-21 07:17] LABS: PLATELET COUNT 82 K/uL (156-360)
[2017-05-21 07:29] LABS: ALKALINE PHOSPHATASE 36 IU/L (3-129); ANION GAP 6 MEQ/L (2-14); CHLORIDE 102 MEQ/L (99-109); SAMPLE HEMOLYSIS CHECK 0; SAMPLE ICTERIC CHECK 0; SAMPLE LIPEMIA CHECK 0; SODIUM 140 MEQ/L (136-147); TOTAL BILIRUBIN 0.3 MG/DL (0.0-1.0); UREA NITROGEN (BUN) 15 mg/dL (9-23)
[2017-05-21 07:34] LABS: GFR ESTIMATE (CALCULATED) 58 mL/min/; GLUCOSE 88 mg/dL (70-99); POTASSIUM 3.5 MEQ/L (3.7-5.4)
[2017-05-21 07:46] VITALS: BP 134/74
[2017-05-21 09:00] LABS: ANISOCYTOSIS 1+; BAND NEUTROPHILS 4.4 % (0-8.0); EOSINOPHIL ABS CT 0.2; EOSINOPHILS 2.7 % (0-5.0); LYMPHOCYTES 17.7 % (15.0-45.0); PLAT.SUFFICIENCY DECREASED; SEG.NEUTROPHILS 71.7 % (46.0-76.0)
[2017-05-21 11:48] VITALS: BP 130/76
[2017-05-21 17:02] VITALS: BP 125/68
[2017-05-21 19:33] VITALS: BP 114/65
[2017-05-21 23:11] VITALS: BP 110/54
[2017-05-22 03:16] VITALS: BP 112/60
[2017-05-22 06:55] LABS: EOSINOPHIL (%) 2.1 % (0-5); EOSINOPHIL COUNT 0.2 K/uL (0-0.3); HEMATOCRIT 31.9 % (36.0-46.0); IMMATURE GRANULOCYTE (%) 1.2 % (0.0-0.7); IMMATURE GRANULOCYTE COUNT 0.1 K/uL; INSTRUMENT ABS NEUTROPHIL CT 5.9 K/uL; LYMPHOCYTE COUNT 1.5 K/uL (1.0-2.8); MCV 103.2 FL (83-99); MONOCYTE (%) 8.1 % (3-12); MONOCYTE COUNT 0.7 K/uL (0-0.8); NEUTROPHIL (%) 69.8 % (45-76); NEUTROPHIL COUNT 5.9 K/uL (1.8-6.4); PLATELET COUNT 85 K/uL (156-360); RBC DIS.WIDTH-CV 14.4 % (11.8-14.6); RBC DIS.WIDTH-SD 54.9 % (39-53); RED BLOOD COUNT 3.09 M/uL (3.80-5.20); WHITE BLOOD COUNT 8.4 K/uL (4.1-10.2)
[2017-05-22 07:53] LABS: ANION GAP 6 MEQ/L (2-14); CHLORIDE 102 MEQ/L (99-109); GFR ESTIMATE (CALCULATED) 52 mL/min/; GLUCOSE 76 mg/dL (70-99); SAMPLE HEMOLYSIS CHECK 0; SAMPLE ICTERIC CHECK 0; SAMPLE LIPEMIA CHECK 0; SODIUM 139 MEQ/L (136-147); UREA NITROGEN (BUN) 10 mg/dL (9-23)
[2017-05-22 07:58] LABS: POTASSIUM 4.6 MEQ/L (3.7-5.4)
[2017-05-22 08:30] VITALS: BP 139/73
[2017-05-22 16:00] VITALS: BP 131/73
[2017-05-23 00:03] VITALS: BP 121/60
[2017-05-23 07:27] VITALS: BP 139/78
[2017-05-23 12:45] LABS: HEMATOCRIT 30.7 % (36.0-46.0); MCH 33.3 PG (29.0-34.0); MCHC 32.9 G/DL (30.0-36.0); MCV 101.3 FL (83-99); MEAN PLAT.VOLUME 9.8 uM^3 (9.5-12.4); PLATELET COUNT 100 K/uL (156-360); RBC DIS.WIDTH-CV 14.3 % (11.8-14.6); RBC DIS.WIDTH-SD 53.1 % (39-53); RED BLOOD COUNT 3.03 M/uL (3.80-5.20); WHITE BLOOD COUNT 7.2 K/uL (4.1-10.2)
[2017-05-23 16:26] VITALS: BP 120/73
[2017-05-23 23:25] VITALS: BP 114/68
[2017-05-24 06:58] LABS: HEMATOCRIT 29.8 % (36.0-46.0); MCH 32.9 PG (29.0-34.0); MCHC 32.6 G/DL (30.0-36.0); MEAN PLAT.VOLUME 10.2 uM^3 (9.5-12.4); PLATELET COUNT 106 K/uL (156-360); RBC DIS.WIDTH-CV 14.3 % (11.8-14.6); RBC DIS.WIDTH-SD 53.1 % (39-53); RED BLOOD COUNT 2.95 M/uL (3.80-5.20); WHITE BLOOD COUNT 5.4 K/uL (4.1-10.2)
[2017-05-24 07:18] LABS: ANION GAP 8 MEQ/L (2-14); CHLORIDE 100 MEQ/L (99-109); GFR ESTIMATE (CALCULATED) > 59 mL/min/; GLUCOSE 73 mg/dL (70-99); POTASSIUM 3.9 MEQ/L (3.7-5.4); SAMPLE HEMOLYSIS CHECK 0; SAMPLE ICTERIC CHECK 0; SAMPLE LIPEMIA CHECK 0; SODIUM 138 MEQ/L (136-147); UREA NITROGEN (BUN) 9 mg/dL (9-23)
[2017-05-24 07:35] VITALS: BP 118/70
[2017-05-24] MEDS ORDERED: CEFEPIME HCL2 GM IM (11:10)
[2017-05-24] MEDS ORDERED: CEFEPIME HCL2 GM IV (11:16)
== END 2017-05-24 14:16 | DRG 682 ==
LOC: EME 11:18 → 5SOUTH 14:29 → EDOF 14:29 → ENRESERV 14:30 → 5SOUTH 16:50
PROVIDERS: Emergency Medicine; Hospitalist; Internal Medicine; Nurse Practitioner Adult Health
DX: N17.9 Acute kidney failure, unspecified (principal); J96.01 Acute respiratory failure with hypoxia; G93.40 Encephalopathy, unspecified; I95.9 Hypotension, unspecified; L03.115 Cellulitis of right lower limb; L03.116 Cellulitis of left lower limb; E86.0 Dehydration; N39.0 Urinary tract infection, site not specified; B96.5 Pseudomonas (aeruginosa) (mallei) (pseudomallei) as the cause of diseases classified elsewhere; D69.6 Thrombocytopenia, unspecified; J44.9 Chronic obstructive pulmonary disease, unspecified; D50.9 Iron deficiency anemia, unspecified; I10 Essential (primary) hypertension; G40.909 Epilepsy, unspecified, not intractable, without status epilepticus; M71.22 Synovial cyst of popliteal space [Baker], left knee; E03.9 Hypothyroidism, unspecified; I87.2 Venous insufficiency (chronic) (peripheral); E78.5 Hyperlipidemia, unspecified; R32 Unspecified urinary incontinence; F32.9 Major depressive disorder, single episode, unspecified; Z91.81 History of falling; Z86.73 Personal history of transient ischemic attack (TIA), and cerebral infarction without residual deficits; Z87.891 Personal history of nicotine dependence; Z60.2 Problems related to living alone
CPT/HCPCS: 36600; 70450; 71020; 76770; 78582; 80048; 80053; 81003; 82565; 82607; 82728; 82746; 82803; 83605; 83880; 84484; 85007; 85025; 85025 91; 85027; 85060; 85379; 87040; 87077; 87086; 87186; 93005; 93306; 93970; 94799; 97530 GP; 99202; 99281; 99285; A9540; A9567; J0692; J0696; J1644; J7030; J7042